=== PATIENT | male | born 1970 ===

== ENCOUNTER 2022-08-22 20:44 | Emergency (ER) | payer SELFPAY ==
[2022-08-22 20:56] VITALS: BP 120/70
[2022-08-22] MEDS ORDERED: DOPamine HCL/D5W 400 MG/250 ML IV BAG IV ONE (20:56)
[2022-08-22] MEDS ORDERED: CALCIUM CHLORIDE 100 MG/ML 10 ML SYRINGE IVP ONE (20:56)
[2022-08-22] MEDS ORDERED: SODIUM BICARBONATE [ADULT] 8.4% 50 MEQ/50 ML SYRINGE IVP ONE (20:56)
[2022-08-22] MEDS ORDERED: EPINEPHrine 1:10,000 [1 MG/10 ML] SYRINGE IVP ONE (20:56)
[2022-08-22] MEDS ORDERED: HEPARIN SODIUM,PORCINE 5,000 UNITS/ML VIAL IVP ONE (21:00)
[2022-08-22] MEDS ORDERED: MORPHINE SULFATE 4 MG/ML SYRINGE IVP ONE (21:00)
[2022-08-22] MEDS ORDERED: ASPIRIN 325 MG TABLET PO ONE (21:00)
[2022-08-22] MEDS ORDERED: ATORVASTATIN CALCIUM 40 MG TABLET PO ONE (21:00)
[2022-08-22] MEDS ORDERED: ONDANSETRON HCL 4 MG/2 ML VIAL IVP ONE (21:00)
[2022-08-22 21:06] LABS: BASOPHILS % (AUTO) 0.4 % (0.0-2.0); EOSINOPHILS % (AUTO) 0.7 % (1.0-6.0); HEMOGLOBIN 14.8 g/dL (13.5-17.5); LYMPHOCYTES # (AUTO) 3.8 K/uL (1.0-4.8); LYMPHOCYTES % (AUTO) 26.1 % (22.0-44.0); MEAN CORPUSCULAR HEMOGLOBIN 29.2 pg (26.0-34.0); MEAN CORPUSCULAR HGB CONC 32.1 G/dL (31.0-37.0); MEAN CORPUSCULAR VOLUME 91 fL (80-100); MONOCYTES # (AUTO) 0.7 K/uL (0.1-1.0); MONOCYTES % (AUTO) 4.6 % (2.0-9.0); NEUTROPHILS # (AUTO) 9.9 K/uL (1.8-7.7); NEUTROPHILS % (AUTO) 68.2 % (40.0-70.0); PLATELET COUNT (AUTO) 107 K/uL (150-450); RED BLOOD CELL COUNT(AUTO) 5.07 MIL/uL (4.50-5.90); RED CELL DISTRIBUTION WIDTH 14.1 % (11.5-14.5)
[2022-08-22 21:19] LABS: INR 1.6 (0.9-1.1); PROTHROMBIN TIME 16.8 SEC (9.4-11.6)
[2022-08-22 21:23] LABS: AMMONIA 49 umol/L (11-32)
[2022-08-22] MEDS ORDERED: IOHEXOL 300 MG/ML 100 ML VIAL ONE (21:31)
[2022-08-22] MEDS ORDERED: SODIUM BICARBONATE 50 MEQ/50 ML VIAL ONE (21:31)
[2022-08-22] MEDS ORDERED: LIDOCAINE/PF 1% 30 ML VIAL ONE (21:31)
[2022-08-22] MEDS ORDERED: HEPARIN SODIUM 1000 UNITS/NS 0 ML ONE (21:32)
[2022-08-22] MEDS ORDERED: EPINEPHrine 1:10,000 [1 MG/10 ML] SYRINGE ONE (21:41)
[2022-08-22 21:42] LABS: ALBUMIN 3.9 g/dL (3.4-5.0); BILIRUBIN,TOTAL 0.3 mg/dL (0.1-1.0); CALCIUM, TOTAL 8.8 mg/dL (8.8-10.5); CREATININE 1.57 mg/dL (0.60-1.30); TOTAL PROTEIN, SERUM 7.4 g/dL (6.4-8.2)
[2022-08-22 21:43] LABS: POTASSIUM 2.8 mmol/L (3.5-5.1)
[2022-08-22] MEDS ORDERED: EPINEPHrine 2 MG in DEXTROSE 5%-WATER 248 ML IV PRN (21:45)
== END 2022-08-23 01:45 ==
LOC: EMS 20:55 → EDBD 20:55 → EMS 08-23 01:45
DX: I46.9 Cardiac arrest, cause unspecified (principal); E11.9 Type 2 diabetes mellitus without complications; I10 Essential (primary) hypertension; Z79.899 Other long term (current) drug therapy
CPT/HCPCS: 99291; 92950; 31500; 80053; 82140; 82550; 82962; 83880; 84484; 85025; 85610; 85730; 36415; 84145; 93005; J1265; J2270; J3490 ×2; J7060; J0171 ×2; J1644; J2405; Q9967